=== PATIENT | female | born 2000 | race Hispanic/Latino ===

== ENCOUNTER 2022-03-27 14:59 | Outpatient (CLI) | payer MEDICAID | END 2022-03-27 15:00 | disposition home or self-care (01) | LOC: CSHRAD 14:59 | PROVIDERS: ATTEND Family Medicine | DX: O32.9XX0 Maternal care for malpresentation of fetus, unspecified, not applicable or unspecified (principal); O99.891 Other specified diseases and conditions complicating pregnancy; N28.89 Other specified disorders of kidney and ureter; Z68.31 Body mass index [BMI] 31.0-31.9, adult | CPT/HCPCS: 76805 ==

== ENCOUNTER 2022-05-02 08:40 | Inpatient (IN) | payer MEDICAID, OTHER ==
[2022-05-02] MEDS ORDERED: Ondansetron PF 4 MG/2 ML Vial IVP PRN ×3 (10:52→21:47)
[2022-05-02] MEDS ORDERED: Acetaminophen 500 MG TAB PO PRN (10:52)
[2022-05-02] MEDS ORDERED: Lidocaine 1% (PF) 30 ML VIAL SC PRN ×2 (10:52→10:53)
[2022-05-02] MEDS ORDERED: Butorphanol Tartrate 1 MG/ML VIAL SLOW IVP PRN (10:52)
[2022-05-02] MEDS ORDERED: hydrALAZINE 20 MG/ML VIAL SLOW IVP PRN ×2 (10:52→21:47)
[2022-05-02] MEDS ORDERED: Promethazine HCl 25 MG/ML VIAL IM PRN ×3 (10:52→21:47)
[2022-05-02] MEDS ORDERED: Misoprostol 200 MCG TAB PR PRN (10:53)
[2022-05-02] MEDS ORDERED: HYDROcodone/Acetaminophen 5/325 mg Tablet PO PRN ×3 (10:53→21:47)
[2022-05-02] MEDS ORDERED: Ibuprofen 800 MG TAB PO PRN (10:53)
[2022-05-02] MEDS ORDERED: Carboprost 250 MCG/ML AMP IM PRN (10:53)
[2022-05-02] MEDS ORDERED: Diphenoxylate HCl/Atropine Tablet PO PRN (10:53)
[2022-05-02] MEDS ORDERED: Methylergonovine 0.2 MG/ML VIAL IM PRN (10:53)
[2022-05-02] MEDS ORDERED: Penicillin G Potassium 5 MILL.UNITS in Sodium Chloride 0.9% 100 ML IVPB SCH (11:00)
[2022-05-02] MEDS ORDERED: NS w/ Oxytocin 30 units 500 ML IV SCH ×3 (11:00→22:00)
[2022-05-02] MEDS ORDERED: Penicillin G Potassium 5 MILL.UNITS VIAL ONE (11:20)
[2022-05-02] MEDS: Lactated Ringer's 1,000 ML IV SCH ×2 (11:40→23:13)
[2022-05-02 12:16] LABS: Mean Corpuscular HGB CONC 33.2 g/dL (32.0-36.0); Mean Corpuscular Hemoglobin 25.9 pg (27.0-33.0); Mean Corpuscular Volume 78.1 fl (81.6-98.3); Mean Platelet Volume 12.7 fl (7.4-10.4); Platelet Count 167 10x3/uL (130-400); RBC Distribution Width 16.9 % (11.5-14.5); Red Blood Cell (RBC) Count 3.47 10x6/uL (3.90-5.03); White Blood Cell (WBC) Count 14.9 10x3/uL (3.5-10.5)
[2022-05-02 12:48] LABS: Syphilis Antibody Nonreactive (Nonreactive); Syphilis Antibody Index 0.04 S/CO (<1.00 Non-Reactive)
[2022-05-02 12:49] LABS: HBSAg Index 0.19 S/CO (0-0.99); Hep B Surf Ag Non-Reactive S/CO (NonReactive)
[2022-05-02 13:24] LABS: SARS-CoV-2 NAA Rapid Test Not Detected (NotDetected)
[2022-05-02] MEDS ORDERED: Fentanyl 2 mcg/Bup 0.1% Cadd 100 ML ONE (14:33)
[2022-05-02] MEDS ORDERED: Moisturizing Cream (Eucerin) 113 GM JAR TOP PRN (14:51)
[2022-05-02] MEDS ORDERED: ePHEDrine Sulfate 50 MG/10 ML VIAL SLOW IVP PRN (14:51)
[2022-05-02] MEDS ORDERED: diphenhydrAMINE 50 MG/ML VIAL IVP PRN (14:51)
[2022-05-02] MEDS ORDERED: Acetaminophen 325 MG TAB PO PRN (14:51)
[2022-05-02] MEDS ORDERED: Lactated Ringer's 500 ML IV PRN (14:51)
[2022-05-02] MEDS ORDERED: Naloxone HCl 0.4 mg/ml Vial IVP PRN ×2 (14:51)
[2022-05-02] MEDS ORDERED: Fentanyl 2 mcg/Bupivacaine 0.1% Cassette 100 ML EPIDURAL SCH (15:00)
[2022-05-02] MEDS ORDERED: Communication Order-Pharmacy FS SCH (15:00)
[2022-05-02] MEDS: Penicillin G 2.5 MILL.units 2.5 MILL.UNITS in Premix Bag 1 BAG IVPB SCH ×2 (16:24→23:13)
[2022-05-02] MEDS ORDERED: Boostrix 0.5 ML (Tdap) VIAL (>/=7 yrs of age) IM ONE (21:47)
[2022-05-02] MEDS ORDERED: Benzocaine-Menthol 82.5 ML CAN TOP PRN (21:47)
[2022-05-02] MEDS ORDERED: Bisacodyl 10 MG SUPP PR PRN (21:47)
[2022-05-02] MEDS ORDERED: Milk Of Magnesia 30 ML UDCUP PO PRN (21:47)
[2022-05-02] MEDS ORDERED: diphenhydrAMINE 25 MG CAP PO PRN (21:47)
[2022-05-02] MEDS ORDERED: Lanolin Ointment 7 GM TUBE TOP PRN (21:47)
[2022-05-02] MEDS ORDERED: Docusate 100 MG CAP PO SCH (22:00)
[2022-05-02] MEDS: Ibuprofen 800 MG TAB PO SCH (22:05)
[2022-05-03 02:52] VITALS: BMI 33.1
[2022-05-03] MEDS: Ibuprofen 800 MG TAB PO SCH ×3 (06:12→21:53)
[2022-05-03] MEDS: Ferrous Sulfate 325 MG TAB PO SCH ×2 (09:12→17:30)
[2022-05-03] MEDS: Prenatal Vitamin 1 TAB PO SCH (09:13)
[2022-05-03] MEDS: Docusate 100 MG CAP PO SCH ×2 (09:13→21:53)
[2022-05-04] MEDS: Ibuprofen 800 MG TAB PO SCH ×2 (05:42→14:41)
[2022-05-04] MEDS: Docusate 100 MG CAP PO SCH (07:49)
[2022-05-04] MEDS: Ferrous Sulfate 325 MG TAB PO SCH (07:49)
[2022-05-04] MEDS: Prenatal Vitamin 1 TAB PO SCH (07:49)
[2022-05-04 07:51] VITALS: BP 120/68; TEMP 97.5
== END 2022-05-04 16:15 | disposition home or self-care (01) | DRG 807 ==
LOC: CSHLD/OP 08:40 → CSHLD 10:24 → CSHPED 20:37
PROVIDERS: ADMIT Family Medicine; ATTEND Family Medicine
PROC: 10E0XZZ Delivery of Products of Conception, External Approach (ICD-10-PCS; principal; 2022-05-02)
PROC: 10907ZC Drainage of Amniotic Fluid, Therapeutic from Products of Conception, Via Natural or Artificial Opening (ICD-10-PCS; 2022-05-02)
PROC: 0HQ9XZZ Repair Perineum Skin, External Approach (ICD-10-PCS; 2022-05-02)
DX: O99.824 Streptococcus B carrier state complicating childbirth (principal); Z37.0 Single live birth; Z3A.37 37 weeks gestation of pregnancy; Z20.822 Contact with and (suspected) exposure to COVID-19; O70.0 First degree perineal laceration during delivery
CPT/HCPCS: 36415; 51702; 85027; 86780; 86850; 86900; 86901; 87340; 99285; J0595; J2540; J2590; J3490; J7120; U0002